=== PATIENT | male | born 2000 | race Asian ===

== ENCOUNTER 2024-10-29 20:40 | Emergency (ER) | payer OTHER, SELFPAY ==
[2024-10-29 20:41] VITALS: BP 121/65; PULSE 136; RESP 18; TEMP 36.8; O2SAT 100; BMI 24.7
--- NOTE | 2024-10-29 21:16 | EKG12_ITS ---
Test Reason : CP Blood Pressure : */* mmHG Vent. Rate : 107 BPM Atrial Rate : 107 BPM P-R Int : 156 ms QRS Dur : 98 ms QT Int : 310 ms P-R-T Axes : 66 81 43 degrees QTcB Int : 413 ms Sinus tachycardia Otherwise normal ECG Confirmed by JAYLENE LARA, DELVIN ([id number]), newspaper editor managing BRISEYDA ELLISON ([id number]) on 11/01/2024 7:05:44 AM Referred By: MACY Confirmed By: DELVIN MARIEE MD
--- NOTE | 2024-10-29 21:23 | EDS_ITS ---
HPI <MANNY Bazzi - Last Filed: 10/29/24 21:54> History of Present Illness Chief Complaint: Shortness of Breath Narrative Narrative: Patient is a 24-year-old male, [place] [facility] [place] he speaks [place] well, he is a [employer] student. Presenting to the emergency department for chest pain, feeling shortness of breath. Patient states that he had a panic attack yesterday secondary to a event with his current romantic partner. He states that this caused him to have some anxiety, he believes he had a panic attack. He also quit smoking cigarettes 2 days ago, he had one of his friends bringing a vape from an [employer], and he was using that throughout the day yesterday and today, he states today, he developed the chest pain, and felt short of breath. He went to the [facility] clinic who referred him to the emerged department. PFSH <MANNY Bazzi - Last Filed: 10/29/24 21:54> [facility] Medical History no medical history Home Medications ?Medication ?Instructions ?Recorded ?Last Taken ?Type oseltamivir 75 mg capsule 75 mg PO BID #10 CAPSULES Unknown Rx Allergy/AdvReac Type Severity Reaction Status Date / Time No Known Allergies Allergy Verified 10/29/24 20:43 Surgical History no surgical history Social History Smoking Status: Former smoker ROS <MANNY Bazzi - Last Filed: 10/29/24 21:54> ROS ED ROS Narrative Constitutional: Negative for fever, chills, weight loss, weakness Eyes: Negative for vision loss, vision change, double vision ENT: Negative for any sore throat, ear pain, congestion Cardiovascular: Negative for any palpitations. Positive chest pain, tightness Respiratory: Negative for any cough, sputum production, hemoptysis, dyspnea on exertion, ort. Positive for dyspnea Gastrointestinal: Negative for any abdominal pain, nausea, vomiting, diarrhea, constipation, blood in stool, blood in vomit : Negative for any urinary frequency, dysuria, retention, blood in urine Muscle skeletal: Negative for any neck pain, back pain Neurological: Negative for any headache, syncope, dizziness Skin: Negative for any rashes, itching, abrasions, lacerations Psychiatric: Negative for any depression, anxiety, stress, suicidal ideation, homicidal ideation Hematologic: Negative for any excessive bruising, easy bleeding EXAM <MANNY Bazzi - Last Filed: 10/29/24 21:54> Physical Exam Narrative Exam Narrative: Vital signs reviewed. Patient is alert and orient x 4, he is in no obvious distress HEET: Head normocephalic atraumatic, TMs clear bilaterally. Posterior pharynx is clear, moist mucous membranes. Nares clear bilaterally. Neck: Supple with no lymphadenopathy or tenderness. No signs of meningismus. Cardiac: Tachycardic rate no murmurs gallops or rubs, equal peripheral pulses bilaterally. Respiratory: Lungs clear to auscultation bilaterally. No chest tenderness. Abdomen: Soft, nontender, nondistended. No abdominal bruit or pulsatile masses. No hepatosplenomegaly Extremities: No peripheral edema, no signs of gross trauma or deformity. Active full range of motion of all extremities. Neuro: Cranial nerves II through XII intact, no focal neurological deficits. Skin: Clean dry and intact with no rash, purpura, petechiae, vesicles or pustules. Backs/flank: No CVA tenderness, no midline spinal tenderness, no deformity. Psych: Normal mood and affect. No SI, HI or acute psychosis. Const Vital Signs: 10/29/24 20:41 10/29/24 21:40 10/29/24 22:08 Temperature 98.2 F 101.3 F H Temperature Source Temporal Oral Pulse Rate 136 H Respiratory Rate 18 Respiratory Effort Normal Non-Labored Respiratory Depth Normal Respiratory Pattern Normal Blood Pressure 121/65 H Blood Pressure Mean 83 Pulse Ox 100 Oxygen Delivery Method Room Air Room Air Positive well nourished and well developed General Appearance ED: well developed <Dr. Ariel Wild, DO - Last Filed: 10/29/24 23:39> Physical Exam Const Vital Signs: 10/29/24 20:41 10/29/24 21:40 10/29/24 22:08 Temperature 98.2 F 101.3 F H Temperature Source Temporal Oral Pulse Rate 136 H Respiratory Rate 18 Respiratory Effort Normal Non-Labored Respiratory Depth Normal Respiratory Pattern Normal Blood Pressure 121/65 H Blood Pressure Mean 83 Pulse Ox 100 Oxygen Delivery Method Room Air Room Air MDM <MANNY Bazzi - Last Filed: 10/29/24 21:54> MDM Radiography Diagnostic Testing: Clinical Impression(s) from Imaging Studies Chest X-Ray 10/29/24 21:47 IMPRESSION: UNREMARKABLE SINGLE VIEW OF THE CHEST AND ABDOMEN. Reading Location: [facility] EKG EKG shows a sinus tachycardia: Attestation: I personally reviewed and interpreted this EKG as follows: Interpretation: Sinus Rhythm Comments: Sinus tachycardia with a rate of 107 bpm, ND interval 156 ms, QRS duration 98 ms, no acute ST elevation, no acute infarct noted. Treatment and Re-Evaluation :: Differential diagnosis includes however is not limited to: Anxiety, stress, COVID-19, influenza, RSV, spontaneous pneumothorax, ACS,, PE On my initial evaluation of the patient was in no obvious distress. Patient's heart rate did decrease. EKG showed the patient's heart rate 107. Presenting to the [facility] apartment for chest pain, some shortness of breath. He believes it secondary to using his vape which is new for him and has been using for 2 days. Patient was educated on the dangers of vape. He understands, states he will no longer vape. Patient will receive a two-view chest x-ray. All radiologic examinations were read, reviewed by the emergency department attending. From these reads, a plan of care will be put in place. EKG was unremarkable, showing no ectopy. Patient was eating and drinking here in the emergency department. Chest x-ray was negative. At this time, believe this was more of a stress reaction, secondary to vaping. Patient will stay away from vaping, will follow- up outpatient. He is happy with the plan of care, all questions answered, stable for discharge. <Dr. Ariel Wild, DO - Last Filed: 10/29/24 23:39> [facility] Narrative Medical decision making narrative: I have personally performed a face to face assessment of the patient and have reviewed the ROOPA Note. I performed a substantive portion of the visit including all aspects of the following. My cortez findings include: History: Patient presents with chest pain and shortness of breath that began today. Patient states it has gradually gotten worse. Patient states his pain has been waxing and waning. Patient states it is diffuse across his entire chest. Patient describes it as aching. Patient states nothing makes it worse and nothing makes it better. Patient states he did have an episode of shortness of breath earlier today but states his breathing is better currently. Exam: Vital signs are stable except for tachycardia of 136. Patient is afebrile. Patient is in no acute distress. Oral mucosa is pink and moist. Neck is supple. Trachea is midline. There is no JVD. Heart was regular and tachycardic. Lungs are clear and equal bilaterally. There is good respiratory effort noted. Abdomen is soft. Bowel sounds are normal. There is no tenderness. Cranial nerves II through XII are intact. There are no focal motor or sensory deficits noted. Medical Decision Making: Differential diagnosis includes pneumonia, bronchitis, cardiac dysrhythmia, and viral illness. Chest x-ray will be obtained to assess for pneumonia and bronchitis. EKG will be obtained to assess for cardiac dysrhythmia. COVID-19, influenza, and RSV PCR will be obtained to assess for viral illness. Patient did develop a fever while here in the emergency department up to 101.3. Because of this, patient was given a dose of Tylenol. PA and lateral chest x- ray was obtained. There are 2 views. On my independent interpretation, lung choudhary are clear. There is normal cardiac silhouette. Bony thorax is normal. There is no acute process noted. Radiologist also interpreted the x-ray and agrees. EKG was obtained. On my independent interpretation, it showed a sinus tachycardia with a rate of 107. ND interval, QRS interval, and QTc intervals were all normal. [place] was normal. There are no acute ST or T wave changes. COVID-19 PCR was reviewed and was negative. Influenza PCR was reviewed and was positive for influenza A and negative for influenza B. RSV PCR was reviewed and was negative. Patient was advised of his findings. Patient was instructed to follow-up with his primary care physician in 5 to 7 days. Patient was instructed to take Tylenol or ibuprofen as needed for any pain or fevers. Patient was instructed to return if worse in any way. Patient understood and was agreeable with the plan. All questions were answered. Radiography Chest X-Ray - ED: 1 View, Read by ED Physician, Read by Radiologist, Normal and No Infiltrates Diagnostic Testing: Clinical Impression(s) from Imaging Studies Chest X-Ray 10/29/24 21:47 IMPRESSION: UNREMARKABLE SINGLE VIEW OF THE CHEST AND ABDOMEN. Reading Location: [facility] Discharge Plan Triage Chief Complaint: Shortness of Breath ED Midlevel Provider: Juanjo Massey ED Provider: Ariel Wild Dx/Rx/DC Orders Clinical Impression: Influenza A, Dyspnea Instructions: ED Influenza (Adult) Prescriptions: New oseltamivir 75 mg capsule 75 mg PO BID Qty: 10 0RF Primary Care Provider: Care Physician,No Primary Referrals: Care Physician,No Primary [Primary Care Provider] - Activity Restrictions/Additional Instructions: Stay away from the vape. Return for any worsening symptoms. Print Language: Finnish Disposition Disposition: Home, Self Care
--- NOTE | 2024-10-29 21:47 | RAD_ITS ---
PROCEDURE: CHEST PA AND LATERAL REASON FOR EXAM: Cough TECHNIQUE: Single frontal image including the chest and abdomen. COMPARISON: None. FINDINGS: The cardiothymic contour is normal. The lungs are clear. Bowel gas pattern is normal. No evidence of bowel obstruction or free air. The bones are unremarkable. No radiopaque foreign body is identified. RAD/Chest PA and Lateral IMPRESSION: UNREMARKABLE SINGLE VIEW OF THE CHEST AND ABDOMEN. [facility]
[2024-10-29 22:08] VITALS: TEMP 38.5
[2024-10-29] MEDS: Acetaminophen 500 MG Tablet 1000 MG PO (22:29)
[2024-10-30] VITALS: BP 108/52; PULSE 98; RESP 23; TEMP 37.9; O2SAT 97
[2024-10-30] MEDS: Oseltamivir Phosphate 75 MG Capsule PO
== END 2024-10-30 00:02 | disposition home or self-care (01) ==
PROVIDERS: Emergency Provider Emergency Medicine; Visit Provider Emergency Medicine
DX: R06.00 Dyspnea, unspecified (principal); J10.1 Influenza due to other identified influenza virus with other respiratory manifestations; F17.290 Nicotine dependence, other tobacco product, uncomplicated
CPT/HCPCS: 71046; 87631; 93005; 99283